=== PATIENT | male | born 1985 | race Two or more races ===

== ENCOUNTER 2023-03-27 15:28 | Emergency (ER) | payer MEDICAID, OTHER ==
[~2023-03-27] VITALS: Ht 167.6 cm; Wt 63.9 kg
[2023-03-27 18:20] LABS: Urine Bacteria NONE SEEN /hpf (None Seen); Urine Blood Negative /uL (Negative); Urine Mucus FEW (None Seen); Urine Specific Gravity 1.018 (1.001-1.035); Urine WBC 1 /hpf (0 - 3)
[2023-03-27 19:15] LABS: Alcohol, Urine < 3.0 mg/dL (0-10); Amphetamine Screen, Urine NEGATIVE (NEGATIVE); Barbiturate Scree,Urine NEGATIVE (NEGATIVE); Benzodiazephine Screen, Urine NEGATIVE (NEGATIVE); Cannabinoid Screen, Urine NEGATIVE (NEGATIVE); Cocaine Screen, Urine NEGATIVE (NEGATIVE); Opiate Scree,Urine NEGATIVE (NEGATIVE); Phencyclidine Screen, Urine NEGATIVE (NEGATIVE)
[2023-03-27] MEDS ORDERED: HYDROcodone-ACET 10/325MG TAB PO ONE (23:00)
[2023-03-28] MEDS ORDERED: TETRACAINE HCL 0.5% OPTH(EYE) SOLN 4ML EACHEYE ONE (00:30)
[2023-03-28] MEDS ORDERED: ONDANSETRON HCL 4 MG/2 ML VIAL IM ONE (02:00)
[2023-03-28 02:43] VITALS: BP 109/72
== END 2023-03-28 02:56 | disposition short-term general hospital (02) ==
LOC: ER 15:28
DX: S05.92XA Unspecified injury of left eye and orbit, initial encounter (principal); J93.9 Pneumothorax, unspecified; Y04.2XXA Assault by strike against or bumped into by another person, initial encounter; Y93.89 Activity, other specified; Y92.89 Other specified places as the place of occurrence of the external cause; Y99.8 Other external cause status
CPT/HCPCS: 70450; 70486; 71250; 72125; 72128; 72131; 73130; 80307; 81001; 96372; 99291; J2405